=== PATIENT | male | born 1935 | race Hispanic/Latino ===

== ENCOUNTER 2018-06-16 11:26 | Emergency (ER) | payer BC, MEDICARE ==
[2018-06-16 11:26] VITALS: BMI 27.2
--- NOTE | 2018-06-16 13:08 | CT ---
Date of service: 06/16/2018 PROCEDURE: CT Chest without contrast HISTORY: patient with hx of cough, injury to left chest COMPARISON: None available. TECHNIQUE: Contiguous axial images were obtained through the chest without intravenous contrast enhancement. Sagittal and coronal reconstructions were performed. Radiation dose (DLP): 531 mGy-cm. This CT exam was performed using one or more of the following dose reduction techniques: Automated exposure control, adjustment of the mA and/or kV according to patient size, and/or use of iterative reconstruction technique. FINDINGS: LUNGS: Clear lungs. Visualized airway clear MEDIASTINUM: Unremarkable thoracic aorta. No aneurysm. Normal sized heart. Main pulmonary artery unremarkable. No vascular congestion. No lymphadenopathy. PLEURA: No pleural fluid. No pneumothorax. BONES: No fracture. No destructive lesion. UPPER ABDOMEN: Grossly unremarkable. OTHER FINDINGS: None. IMPRESSION: Unremarkable non-contrast enhanced CT of the chest.
--- NOTE | 2018-06-16 13:21 | ED PDOC ---
Arrival/HPI - General Chief Complaint: Trauma Time Seen by Provider: 06/16/18 11:51 Historian: Patient - History of Present Illness Narrative History of Present Illness (Text): 06/16/18 13:18 Patient is an 83 yo male presents to the Emergency Department with left sided chest pain after tripping yesterday and landing onto his left side. He denies head injury or loss of consciousness. He denies neck pain or abdominal pain. Denies hip or leg pain. States that he landed forward onto the concrete and "hit my chest". He denies shortness of breath but he has pain when he takes a deep breath. Denies dizziness or lightheadedness. Denies hemoptysis or hematemeis. He states that pain was worse with movements after the injury last night, but states pain is much improved this morning but persists. Past Medical History - Cardiac Hx Cardiac Disorders: Yes Hx Hypertension: Yes - Pulmonary Hx Respiratory Disorders: No - Neurological Hx Neurological Disorder: No - HEENT Hx HEENT Disorder: No - Renal Hx Renal Disorder: No - Endocrine/Metabolic Hx Endocrine Disorders: Yes Hx Diabetes Mellitus Type 2: Yes - Hematological/Oncological Hx Blood Disorders: No - Integumentary Hx Dermatological Disorder: No - Musculoskeletal/Rheumatological Hx Musculoskeletal Disorders: No - Gastrointestinal Hx Gastrointestinal Disorders: No - Genitourinary/Gynecological Hx Genitourinary Disorders: Yes Hx Prostate Problems: Yes - Psychiatric Hx Psychophysiologic Disorder: Yes Hx Anxiety: Yes Hx Substance Use: No - Surgical History Other/Comment: COLONOSCOPY - Anesthesia Hx Anesthesia Reactions: No Hx Malignant Hyperthermia: No - Suicidal Assessment Feels Threatened In Home Enviroment: No Family/Social History Family/Social History: Unknown Family HX Smoking Status: Never Smoked Hx Alcohol Use: Yes (BEER OR WINE ON OCCASION) Hx Substance Use: No Allergies/Home Meds Allergies/Adverse Reactions: Allergies No Known Allergies Allergy (Verified 06/16/18 11:41) Home Medications: Home Meds Medication Instructions Recorded Confirmed Aspirin/Dipyridamole [Aggrenox 1 ea PO BID 09/24/14 06/16/18 25-200 mg] Atenolol 25 mg PO DAILY 09/24/14 06/16/18 Gemfibrozil 600 mg PO BID 09/24/14 06/16/18 Lisinopril 10 mg PO DAILY 09/24/14 06/16/18 Metformin HCl [Metformin] 1,000 mg PO BID 09/24/14 06/16/18 Simvastatin 40 mg PO DAILY 09/24/14 06/16/18 Tamsulosin [Flomax] 0.4 mg PO DAILY 09/24/14 06/16/18 Repaglinide [Prandin] 1 tab PO DAILY 06/16/18 06/16/18 Review of Systems - Review of Systems Constitutional: absent: Fevers Respiratory: absent: SOB Cardiovascular: Chest Pain. absent: Edema, GARCIA, Orthopnea, Syncope Gastrointestinal: absent: Abdominal Pain Genitourinary Male: absent: Dysuria, Frequency Musculoskeletal: absent: Back Pain, Neck Pain Skin: absent: Rash, Skin Lesions, Laceration Neurological: absent: Headache, Dizziness, Focal Weakness Endocrine: absent: Polyuria Hemo/Lymphatic: absent: Easy Bleeding Physical Exam Vital Signs Reviewed: Yes Vital Signs Temp Pulse Resp BP Pulse Ox 06/16/18 11:43 98.7 F 54 L 16 175/85 H 97 Temperature: Afebrile Blood Pressure: Hypertensive Appearance: Positive for: Non-Toxic Pain Distress: Mild Mental Status: Positive for: Alert and Oriented X 3 - Systems Exam Head: Present: Atraumatic Mouth: Present: Moist Mucous Membranes Neck: Present: Normal Range of Motion. No: Meningeal Signs Respiratory/Chest: Present: Clear to Auscultation, Good Air Exchange, Tender to Palpation (focal tenderness to palpation of left anterior chest wall with no ecchymosis, no edema, no crepitus). No: Respiratory Distress, Accessory Muscle Use, Wheezes, Decreased Breath Sounds, Rales, Retracting, Rhonchi, Tachypneic Cardiovascular: Present: Murmurs, Bradycardic Abdomen: No: Tenderness Upper Extremity: No: Cyanosis Lower Extremity: Present: Other (small abrasion to left leg, no hip or knee pain or deformity). No: Edema Neurological: Present: Motor Func Grossly Intact, Normal Sensory Function Skin: Present: Warm Psychiatric: Present: Alert, Normal Insight, Normal Concentration Medical Decision Making ED Course and Treatment: 06/16/18 13:22 Patient is alert and oriented. Denies head injury. Pain is palpable. No crepitus. Lungs are clear. No hypoxia noted. No abdominal pain. No other acute trauma noted. I reviewed patient's recent outpatient chest xray which he states was ordered by his PMD because he had "congestion". Currently afebrile with no wheezing. Pain occurred after the fall. CT chest obtained which report review reveals no pneumothorax, no rib fracture. Will discharge with instructions to take Tylenol as needed for pain, use incentive spirometer, follow-up with ER or PMD for any new, persistent or worsening of any symptoms. 06/16/18 13:38 Procedure: CT Chest without contrast Impression: Unremarkable non-contrast enhanced CT of the chest. Dictator: Gregg Phillips MD - RAD Interpretation Radiology Orders: 06/16/18 12:23 CHEST W/O CONTRAST [CT] Stat Disposition/Present on Arrival - Present on Arrival Any Indicators Present on Arrival: Yes History of DVT/PE: No History of Uncontrolled Diabetes: Yes Urinary Catheter: No History of Decub. Ulcer: No History Surgical Site Infection Following: None - Disposition Have Diagnosis and Disposition been Completed?: Yes Diagnosis: Contusion of rib on left side Disposition: HOME/ ROUTINE Disposition Time: 13:24 Patient Plan: Discharge Patient Problems: Current Active Problems Problem Status Onset Contusion of rib on left side Acute Condition: GOOD Discharge Instructions (ExitCare): Bruised Rib (DC) Additional Instructions: Use incentive spirometer as directed. Take tylenol as needed for pain. For any coughing, wheezing, shortness of breath, increase in pain, any new or persistent symptoms, get rechecked. Follow-up with your physician in 1-2 days for re-evaluation of blood pressure, return immediately for any headaches or chest pain or numbness or weakness. Referrals: Hunter Bui DO [Primary Care Provider] - Follow up with primary Forms: [employer] (Romanian)
[2018-06-16 14:31] VITALS: BP 168/79; PULSE 79; RESP 18; TEMP 97.8; O2SAT 98
--- NOTE | 2018-06-16 23:35 | CARD ---
APPROVED REPORT Date of service: 06/16/2018 EKG Measurement Heart [id number] CT [id number] <Conclusion> Sinus bradycardia with sinus arrhythmia Otherwise normal ECG
== END 2018-06-16 14:32 | disposition home or self-care (01) ==
LOC: ED 11:26
DX: S20.212A Contusion of left front wall of thorax, initial encounter (principal); W01.0XXA Fall on same level from slipping, tripping and stumbling without subsequent striking against object, initial encounter; E11.9 Type 2 diabetes mellitus without complications; I10 Essential (primary) hypertension

== ENCOUNTER 2018-10-06 07:57 | Outpatient (CLI) | payer BC, MEDICARE | END 2018-10-06 07:58 | disposition home or self-care (01) | LOC: LAB 07:57 ==

== ENCOUNTER 2018-10-23 06:53 | Outpatient (CLI) | payer BC, MEDICARE | END 2018-10-23 06:54 | disposition home or self-care (01) | LOC: CARDIO 06:53 ==

== ENCOUNTER 2018-12-26 13:11 | Outpatient (CLI) | payer BC, MEDICARE | END 2018-12-26 13:12 | disposition home or self-care (01) | LOC: LAB 13:11 ==

== ENCOUNTER 2019-01-04 07:14 | Day surgery (SDC) | payer BC, MEDICARE ==
[2018-12-29 12:53] VITALS: BMI 32.8
--- NOTE | 2019-01-04 03:53 | HP ---
DATE OF EXAM: <> 01/04/2019 REASON FOR ADMISSION: Left heart catheterization. Abnormal stress test. BRIEF CLINICAL HISTORY: An 83-year-old male with past medical history significant for diabetes, hypertension, hyperlipidemia, abnormal stress test schedule for elective cardiac cath possible angioplasty. PAST MEDICAL HISTORY: History of benign prostatic hypertrophy, history of hypertension, hyperlipidemia, sinus arrhythmia. SOCIAL HISTORY: Denies any history of alcohol abuse. CURRENT MEDICATIONS: The patient is taking Paxil 12.5 mg daily, baby aspirin 81 mg daily, metformin 1000 g daily, lisinopril 10 mg daily, Lopid 600 mg twice a day, atenolol 25 mg daily, aspirin and dipyridamole that is Aggrenox 25/200 mg twice a day, Flomax 0.4 mg daily, Zocor 40 mg daily, Prandin 0.5 mg daily. ALLERGIES: NO KNOWN DRUG ALLERGIES. RECENT CARDIAC WORKUP FOLLOWS: The patient had stress test dated 10/23/2018, that revealed probably abnormal myocardial profusion study, partially reversible distal anteroseptal apical defect suspicion ischemia, fixed defect inferior probably secondary to diaphragmatic attenuation, ejection fraction calculated 56% dated 10/23/2018. The patient has an echocardiography 10/23/2018, that revealed normal chamber size ejection fraction 55-60%, trace aortic regurgitation, mild aortic stenosis versus aortic sclerosis, [id number] mitral regurgitation, [id number] tricuspid regurgitation more towards mild, RV systolic pressure 45. EKG showed normal sinus with marked sinus arrhythmia noted. Heart rate 54, sinus bradycardia, date of the EKG 10/06/2018. REVIEW OF SYSTEMS: As per HPI. PHYSICAL EXAMINATION GENERAL: As follow; height of the patient 5 feet 3 inches, weight of the patient 185 pounds, body mass index 33 kg/m2. VITAL SIGNS: Temperature afebrile, heart rate 58, blood pressure 130/80. HEENT: PERRLA. Extraocular muscles intact. NECK: Supple. No carotid bruits or thyromegaly. CHEST: Clear to auscultation. HEART: S1, S2 regular. ABDOMEN: Soft. EXTREMITIES: Clubbing and cyanosis negative. LABORATORY DATA: Blood workup pending. IMPRESSION: An 83-year-old male with past medical history of obesity, diabetes, hypertension, hyperlipidemia, abnormal stress, anteroseptal anteroapical ischemia, preserved left ventricular function, ejection fraction 60%. Echocardiogram shows [id number] mitral regurgitation, [id number]-uwdykzyb tricuspid regurgitation, aortic sclerosis versus mild aortic stenosis, trace aortic regurgitation, admitted for left heart cath because of abnormal stress test. Risks, benefits, alternatives explained to the patient and the patient agreed to proceed for cardiac catheterization. We will await for the blood workup when available. After that, will load with aspirin, Plavix. Further recommendation after the cardiac catheterization. Will follow with you. Thank you, Dr. Bui, for providing us the opportunity in taking care of the patient, Devaughn Ware. Colton Llamas MD
[2019-01-04 07:41] LABS: BASO # 0.02 K/mm3 (0.0-2.0); BASO % 0.4 % (0.0-3.0); EOS # 0.2 (0.0-0.7); HEMOGLOBIN 11.4 g/dL (14.0-18.0); LYMPH # 1.7 (1.2-3.4); LYMPH % 29.3 % (22.0-35.0); MEAN CELL VOLUME 96.6 fl (80.0-105.0); MEAN CORPUSCULAR HEMOGLOBIN 31.9 pg (25.0-35.0); MEAN PLATELET VOLUME 10.2 fl (7.0-11.0); MONO # 0.4 (0.1-0.6); MONO % 7.4 % (1.0-6.0); RBC 3.57 10^6/uL (3.5-6.1); RED CELL DISTRIBUTION WIDTH 13.3 % (11.5-14.5); WHITE BLOOD COUNT 5.6 10^3/uL (4.5-11.0)
[2019-01-04 07:51] LABS: INR 1.12; PROTHROMBIN TIME 12.6 SECONDS (9.4-12.5)
[2019-01-04 07:52] LABS: CALCIUM 8.7 mg/dL (8.4-10.5)
[2019-01-04] MEDS ORDERED: Iodixanol 320 MG/ML 200 ML BOTTLE IV ONE (09:43)
[2019-01-04] MEDS ORDERED: Nitroglycerin 50mg in D5W 50 MG/250 ML BOTTLE IV ONE (09:43)
[2019-01-04] MEDS ORDERED: Verapamil 2 ML ONE (09:43)
[2019-01-04] MEDS ORDERED: Lidocaine PF 2% (5 ml) Inj (For Cardiac Arrhy) ONE (09:43)
[2019-01-04] MEDS ORDERED: Midazolam 2 MG/2 ML VIAL ONE ×2 (10:28→10:57)
[2019-01-04] MEDS ORDERED: Sodium Chloride 0.9% 1,000 ML IV SCH (11:30)
[2019-01-04] MEDS ORDERED: Bacitracin 500 Units/gm Oint Foilpak UD TOP ONE (11:30)
--- NOTE | 2019-01-04 12:03 | CPOSTOP ---
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 TYPE OF ANESTHESIA: Moderate conscious sedation. Total 3 mg of Versed, 150 of fentanyl given. PRE-PROCEDURE DIAGNOSES: Unstable angina, abnormal stress test. PROCEDURE PERFORMED: Left heart catheterization. FINDINGS: Nonobstructive coronary artery disease, ostial ramus 55% stenosis. FINAL DIAGNOSES: Nonobstructive coronary artery disease, preserved LV function. POST PROCEDURE CONDITION: The patient's condition is stable. VASCULAR ACCESS SITE: Left radial artery. CLOSURE DEVICE: TR-band. TOTAL RADIATION DOSE: 6061.0 milligray unit. CUMULATIVE DOSE: 891 milligray unit. FLUORO TIME: 3.9 minutes. CONTRAST USED: 20 mL. Colton Llamas MD
[2019-01-04 12:15] VITALS: TEMP 97.5
[2019-01-04 12:26] VITALS: RESP 16
[2019-01-04 12:28] VITALS: O2SAT 96
[2019-01-04 14:54] VITALS: BP 133/53; PULSE 44
[2019-01-04 15:46] LABS: BASO # 0.02 K/mm3 (0.0-2.0); BASO % 0.4 % (0.0-3.0); EOS # 0.2 (0.0-0.7); HEMOGLOBIN 10.5 g/dL (14.0-18.0); LYMPH # 1.9 (1.2-3.4); LYMPH % 32.9 % (22.0-35.0); MEAN CELL VOLUME 97.9 fl (80.0-105.0); MEAN CORPUSCULAR HEMOGLOBIN 31.6 pg (25.0-35.0); MEAN CORPUSCULAR HGB CONC 32.3 g/dl (31.0-37.0); MEAN PLATELET VOLUME 10.2 fl (7.0-11.0); MONO # 0.5 (0.1-0.6); RBC 3.32 10^6/uL (3.5-6.1); RED CELL DISTRIBUTION WIDTH 13.5 % (11.5-14.5); WHITE BLOOD COUNT 5.6 10^3/uL (4.5-11.0)
[2019-01-04 15:47] LABS: BLOOD UREA NITROGEN 32 mg/dL (7-21); CALCIUM 8.3 mg/dL (8.4-10.5); GFR NON-AFRICAN AMERICAN 53
--- NOTE | 2019-01-05 15:50 | CARD ---
APPROVED REPORT Date of service: 01/04/2019 Procedure(s) performed: Left Heart Catheterization HISTORY The patient is a 83 year-old male with a history of : most recent EF: 56%. 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 INDICATION The indication(s) include : positive stress test. CASE TECHNIQUE The patient was brought electively to the Cardiac Catheterization Laboratory in a fasting state and was prepped and draped in a sterile manner. The left wrist was infiltrated with 2% Lidocaine subcutaneous anesthesia. A 6 Fr Glidesheath (Radial Sheath Only) sheath was inserted into the left radial artery without difficulty. Coronary angiography was performed using coronary diagnostic catheters. The left coronary system was accessed and visualized with a Diagnostic ,5 Fr JL 4 catheter. The right coronary system was accessed and visualized with a Diagnostic ,5 Fr AL 1 catheter. The left ventricle was accessed and visualized with a 5 Fr Pigtail 145 (Angled) catheter. Left ventricular/Aortic Valve gradient assessed on pullback. Left ventriculogram was performed in WALLACE projection. Closure device was deployed with a Fr TR Band (Large) without any complications. The patient tolerated the procedure well and there were no complications associated with the procedure. Vessel Analysis The patient's coronary anatomy is right dominant. The left main coronary artery is a medium size vessel with diffuse calcification noted throughout this vessel and without significant stenosis. The left main trifurcates to the left anterior descending, circumflex, and ramus. The left anterior descending artery is a medium size vessel with diffuse calcification noted throughout this vessel and without significant stenosis. There is a 50% stenosis in the very distal segment near [place].. The first diagonal branch is a small size vessel with diffuse calcification noted throughout this vessel and without significant stenosis. The second diagonal branch is a medium size vessel with diffuse calcification noted throughout this vessel and without significant stenosis. The third diagonal branch is a small size vessel with diffuse calcification noted throughout this vessel and without significant stenosis. The circumflex artery is a medium size vessel with diffuse calcification noted throughout this vessel and without significant stenosis. The first obtuse marginal branch is a medium size vessel with diffuse calcification noted throughout this vessel and without significant stenosis. The second obtuse marginal branch is a medium size vessel with diffuse calcification noted throughout this vessel and without significant stenosis. The third obtuse marginal branch is a medium size vessel with diffuse calcification noted throughout this vessel and without significant stenosis. The ramus intermedius artery is a small size vessel with diffuse calcification noted throughout this vessel and without significant stenosis. There is a 55% stenosis in the ostial segment. small vessel Less than 1.5 mm in diameter. The right coronary artery is a large size vessel with diffuse calcification noted throughout this vessel and without significant stenosis. RCA superior Take off The right posterior descending artery is a large size vessel with diffuse calcification noted throughout this vessel and without significant stenosis. The right posterolateral branch is a large size vessel with diffuse calcification noted throughout this vessel and without significant stenosis. Left Ventricle The left ventricle is normal in size with normal contractility. There was no cardiomyopathy. The left ventricular ejection fraction is estimated to be 55%. The left ventricular end diastolic pressure is 12-15 mmHg. There was no gradient across the aortic valve upon pullback. Conclusion Non Obstructive CAD, Very distal LAD near apex 50% stenosis, and Ostial Ramus has 55% stenosis, small vessel , less than 1.5 mm in diameter. Preserved Lv FxEF=-55%, EDP-12-14 mmof Hg. Recommendations Aggressive Medical TherapyCardiac Risk Reduction Program Weight Loss Reduction Program Cc; Maryuri/ Hao/ Nathalie.
== END 2019-01-04 16:30 | disposition home or self-care (01) ==
LOC: CATH 07:14
PROVIDERS: ATTEND Internal Medicine Cardiovascular Disease
DX: I25.110 Atherosclerotic heart disease of native coronary artery with unstable angina pectoris (principal); I10 Essential (primary) hypertension; E11.9 Type 2 diabetes mellitus without complications; I08.3 Combined rheumatic disorders of mitral, aortic and tricuspid valves; N40.0 Benign prostatic hyperplasia without lower urinary tract symptoms; E78.5 Hyperlipidemia, unspecified; E66.9 Obesity, unspecified; Z68.32 Body mass index [BMI] 32.0-32.9, adult; Z79.82 Long term (current) use of aspirin; Z79.84 Long term (current) use of oral hypoglycemic drugs; Z79.02 Long term (current) use of antithrombotics/antiplatelets
CPT/HCPCS: 36415; 80048; 80061; 85025; 85610; 85730; 86850; 86900; 93458; 99152; 99153; C1769; C1887 ×2; J1644 ×2; J2250; J3010; J7030; J7040; Q9966

== ENCOUNTER 2019-01-18 09:56 | Outpatient (CLI) | payer BC, MEDICARE | END 2019-01-18 09:57 | disposition home or self-care (01) | LOC: RAD 09:56 ==